=== PATIENT | female | born 1945 | race Caucasian/White ===

== ENCOUNTER 2020-07-12 09:43 | Outpatient (CLI) | payer MEDICARE, BC, SELFPAY ==
--- NOTE | 2020-07-12 09:48 | MM_ITS ---
WS: [id number] BILATERAL DIGITAL SCREENING MAMMOGRAPHY WITH CAD CLINICAL INFORMATION: SCREENING HISTORY: Screening mammogram. No current complaints. COMPARISON: July 07, 2019 TECHNIQUE: Bilateral CC and MLO views. FINDINGS: Scattered fibroglandular densities bilaterally. No suspicious focal mass, asymmetry, calcifications, or architectural distortion. No evidence of malignancy. Vascular calcification MM/[place] [id number] IMPRESSION: BI-RADS: 2-Benign FOLLOW UP: 1 Year Follow-up Recommend return to annual screening mammography.
--- NOTE | 2020-11-03 18:12 | XRR_ITS ---
PROCEDURE INFORMATION: Exam: XR Left Hand Exam date and time: 11/03/2020 6:23 PM Age: 75 years old Clinical indication: Hand; Left; Patient HX: 5th finger pain; Additional info: Pain lt. Hand TECHNIQUE: Imaging protocol: XR Left hand. Views: 3 or more views. Total images: 3 COMPARISON: No relevant prior studies available. FINDINGS: Bones/joints: Simple comminuted intra-articular fracture base of the proximal phalanx 5th digit left hand. Advanced primary osteoarthritis. Osteoporosis. Soft tissues: Soft tissue swelling surrounding the 5th metacarpal phalangeal joint.
== END 2020-07-12 09:44 | disposition home or self-care (01) ==
LOC: RADSHAW 09:47
PROVIDERS: PCP Nurse Practitioner; Visit Provider Nurse Practitioner
DX: Z12.31 Encounter for screening mammogram for malignant neoplasm of breast (principal)
CPT/HCPCS: 77067

== ENCOUNTER 2020-11-03 12:44 | Outpatient (CLI) | payer MEDICARE, BC, SELFPAY ==
--- NOTE | 2020-11-03 | XR_ITS ---
WS: PROCEDURE INFORMATION: Exam: XR Left Hand Exam date and time: 11/03/2020 6:23 PM Age: 75 years old Clinical indication: Hand; Left; Patient HX: 5th finger pain; Additional info: Pain lt. Hand TECHNIQUE: Imaging protocol: XR Left hand. Views: 3 or more views. Total images: 3 COMPARISON: No relevant prior studies available. FINDINGS: Bones/joints: Simple comminuted intra-articular fracture base of the proximal phalanx 5th digit left hand. Advanced primary osteoarthritis. Osteoporosis. Soft tissues: Soft tissue swelling surrounding the 5th metacarpal phalangeal joint. XR/XR hand LT min 3V* [id number] IMPRESSION: Simple comminuted intra-articular fracture base of the proximal phalanx 5th digit left hand.
== END 2020-11-03 12:45 | disposition home or self-care (01) ==
PROVIDERS: PCP Nurse Practitioner; Visit Provider Nurse Practitioner
DX: M25.542 Pain in joints of left hand (principal); S62.617A Displaced fracture of proximal phalanx of left little finger, initial encounter for closed fracture; X58.XXXA Exposure to other specified factors, initial encounter
CPT/HCPCS: 73130

== ENCOUNTER 2020-12-11 07:47 | Outpatient (CLI) | payer MEDICARE, BC, SELFPAY ==
--- NOTE | 2020-12-11 08:04 | XR_ITS ---
WS: [id number] HAND LEFT TECHNIQUE: 3 views of the left hand CLINICAL INFORMATION: DISPLACED FRACTURE OF MIDDLE PHLALANX OTHER FINGER, SUBSEQUE COMPARISON: November 03, 2020 FINDINGS: Osteopenia Again seen is the intra-articular fracture fifth digit proximal phalanx. Persistent fracture lines wi th incomplete healing. No significant displacement. No other changes from previous. XR/XR hand LT min 3V* [id number] IMPRESSION: Incomplete healing of the intra-articular fracture fifth digit proximal phalanx . No displacement.
== END 2020-12-11 07:48 | disposition home or self-care (01) ==
PROVIDERS: PCP Nurse Practitioner; Visit Provider Nurse Practitioner
DX: S62.628A Displaced fracture of middle phalanx of other finger, initial encounter for closed fracture (principal); X58.XXXA Exposure to other specified factors, initial encounter
CPT/HCPCS: 73130

== ENCOUNTER → 2020-12-19 13:59 | Outpatient (BNVA) | payer MEDICARE, BC, SELFPAY | PROVIDERS: PCP Nurse Practitioner; Visit Provider Orthopaedic Surgery | DX: S62.617D Displaced fracture of proximal phalanx of left little finger, subsequent encounter for fracture with routine healing (principal); W19.XXXD Unspecified fall, subsequent encounter | CPT/HCPCS: 73140 ==

== ENCOUNTER 2021-06-14 13:12 | Outpatient (CLI) | payer MEDICARE, BC, SELFPAY ==
--- NOTE | 2021-06-14 13:19 | XR_ITS ---
WS: [id number] Right knee, AP and lateral views, 06/14/2021 Clinical Data: PAIN IN R LEG Comparison: None. Findings: No fractures or dislocations are seen. There is medial joint compartment narrowing with small osteoph ytes of the medial lateral femoral condyles. The posterior right patella shows spurring and irregular ity. The soft tissues are unremarkable. XR/XR knee RT 1-2V [id number] Impression: Minimal osteoarthritis of all 3 joint compartments. Kellgren-Jomar Classification: grade 2 (minimal): definite osteophytes and p ossible joint space narrowing
== END 2021-06-14 13:13 | disposition home or self-care (01) ==
LOC: RAD 13:16
PROVIDERS: PCP Nurse Practitioner; Visit Provider Nurse Practitioner
DX: M17.11 Unilateral primary osteoarthritis, right knee (principal)
CPT/HCPCS: 73560

== ENCOUNTER 2022-10-14 13:57 | Outpatient (CLI) | payer MEDICARE, SELFPAY ==
--- NOTE | 2022-10-14 14:08 | MM_ITS ---
WS: [id number] BILATERAL 3D TOMOSYNTHESIS DIGITAL SCREENING MAMMOGRAPHY WITH CAD CLINICAL INFORMATION: SCREENING HISTORY: Screening mammogram. No current complaints. COMPARISON: 2020 TECHNIQUE: Bilateral CC and MLO views. FINDINGS: Scattered fibroglandular densities bilaterally. No suspicious focal mass, asymmetry, calcifications, or architectural distortion. No evidence of malignancy. Vascular calcification. MM/[place] [id number] IMPRESSION: BI-RADS: 2-Benign FOLLOW UP: 1 Year Follow-up Recommend return to annual screening mammography.
== END 2022-10-14 13:58 | disposition home or self-care (01) ==
LOC: RAD 14:03
PROVIDERS: PCP Nurse Practitioner; Visit Provider Nurse Practitioner Family
DX: Z12.31 Encounter for screening mammogram for malignant neoplasm of breast (principal)
CPT/HCPCS: 77063; 77067

== ENCOUNTER → 2022-11-28 10:47 | Outpatient (BNVA) | payer MEDICARE, SELFPAY | PROVIDERS: PCP Nurse Practitioner Family; Visit Provider Internal Medicine Cardiovascular Disease | DX: R55 Syncope and collapse (principal); I49.1 Atrial premature depolarization; I49.3 Ventricular premature depolarization; I47.1 Supraventricular tachycardia; I47.20 Ventricular tachycardia, unspecified | CPT/HCPCS: 93246 ==

== ENCOUNTER → 2023-03-18 09:53 | Outpatient (BNVA) | payer MEDICARE, SELFPAY | PROVIDERS: PCP Nurse Practitioner Family; Visit Provider Internal Medicine Cardiovascular Disease | DX: I47.1 Supraventricular tachycardia (principal); R06.09 Other forms of dyspnea; I47.29 Other ventricular tachycardia; R94.31 Abnormal electrocardiogram [ECG] [EKG]; M06.9 Rheumatoid arthritis, unspecified; Z01.810 Encounter for preprocedural cardiovascular examination | CPT/HCPCS: 93005; 99204 ==

== ENCOUNTER 2023-03-31 09:01 | Outpatient (CLI) | payer MEDICARE, SELFPAY ==
--- NOTE | 2023-03-31 09:30 | USCV_ITS ---
Irma Chaves Age: 77 Gender: F : 1945 Exam Date: 03/31/2023 09:22 Ordering Phys: Irina Lobo MD ([email or web address]) Technologist: Tomeka Field [place]am [place] [facility] [place] Indication: vtach, dyspnea BP: 140 / 80 HR: 64 Rhythm: Sinus Technical Quality: Good MEASUREMENTS (Male / Female) Normal Values 2D ECHO LV Diastolic Diameter PLAX 4.6 cm 4.2 - 5.9 / 3.9 - 5.3 cm LV Systolic Diameter PLAX 2.9 cm IVS Diastolic Thickness 1.3 cm 0.6 - 1.0 / 0.6 - 0.9 cm IVS Systolic Thickness 1.7 cm LVPW Diastolic Thickness 0.6 cm 0.6 - 1.0 / 0.6 - 0.9 cm LVPW Systolic Thickness 1.1 cm LVOT Diameter 2.1 cm LV Ejection Fraction 2D Teich 66.3 % LV Ejection Fraction MOD 2C 66.0 % LV Ejection Fraction 2C AL 68.1 % LA Diameter 2.9 cm LA Width 3.1 cm LA Height 3.8 cm RA Width 2.9 cm RA Height 3.3 cm Aorta at Sinotubular Diameter 2.9 cm IVC Diameter 1.5 cm M-MODE Aortic Annulus Diameter 2.7 cm LA Ao Ratio MM 1.2 MV E Point Septal Separation 0.6 cm DOPPLER AV Peak Velocity 151.7 cm/s LVOT Peak Velocity 85.0 cm/s AV Area Cont Eq vti 1.9 cm squared AV Area Cont Eq pk 2.0 cm squared MV Peak Velocity 123.0 cm/s MV Area PHT 4.1 cm squared Mitral E to A Ratio 0.8 MV E' Velocity 84.0 cm/s TR Peak Velocity 171.8 cm/s TR Peak Gradient 11.8 mmHg Right Atrial Pressure 5.0 mmHg Pulmonary Artery Systolic Pressu 16.8 mmHg PV Peak Velocity 59.0 cm/s RV Acceleration Time 0.1 s RV Ejection Time 0.3 s RV AcT/ET 0.3 FINDINGS Left Ventricle Normal left ventricular size, systolic function and wall thickness, with no regional wall motion abnormalities. Left ventricular ejection fraction is estimated at 70 %. Normal diastolic function. Right Ventricle Normal right ventricular size and systolic function. Right ventricular systolic pressure 16.8 mmHg. Right Atrium Normal right atrial size. Left Atrium Normal left atrial size. Mitral Valve Structurally normal mitral valve. No mitral valve stenosis. Mild mitral valve regurgitation. Aortic Valve Trileaflet aortic valve. No aortic valve stenosis. Mild-to- moderate aortic valve regurgitation. Tricuspid Valve Structurally normal tricuspid valve. No tricuspid valve stenosis. Trace to mild tricuspid valve regurgitation. Pulmonic Valve Pulmonic valve not well visualized. No pulmonary valve stenosis. No pulmonary valve regurgitation. Pericardium No pericardial effusion. Aorta Normal size aortic root. IVC Normal IVC dimension with >50% respiratory change of the inferior vena cava. CONCLUSIONS 1. Normal left ventricular size, systolic function and wall thickness, with no regional wall motion abnormalities. Left ventricular ejection fraction is estimated at 70 %. Normal diastolic function. 2. Dbix-bc-wvkhztob aortic valve regurgitation. 3. Mild mitral valve regurgitation. 4. No prior similar studies to compare. Irina Lobo MD (Electronically Signed) Final Date: 12 April 2023 22:51 S
== END 2023-03-31 09:02 | disposition home or self-care (01) ==
LOC: RAD 09:02
PROVIDERS: PCP Nurse Practitioner Family; Visit Provider Internal Medicine Cardiovascular Disease
DX: I47.29 Other ventricular tachycardia (principal); R06.09 Other forms of dyspnea; I08.0 Rheumatic disorders of both mitral and aortic valves
CPT/HCPCS: 93306

== ENCOUNTER 2023-04-03 10:28 | Outpatient (CLI) | payer MEDICARE, SELFPAY ==
[2023-04-03 10:53] VITALS: BMI 29.4
--- NOTE | 2023-04-03 11:13 | NMCV_ITS ---
NM marija perf SPECT r/s* [id number] Irma Chaves Age: 77 Gender: F : 1945 Exam Date: 04/03/2023 11:55 Ordering Phys: Irina Lobo MD ([email or web address]) Technologist: HIWOT Lacey Exam Location: [facility] Indications: EXERTIONAL SHORTNESS OF BREATH, ISCHEMIC HEART DISEASE STRESS TEST [facility] IMAGE PROTOCOL Rest/Stress 1 Lexiscan Day Radiopharmaceutical Dose (mCi) Administration Site Administered by Rest: Tc-99m 10.5 IV HIWOT Lacey Sestamibi Stress:Tc-99m 32.9 IV HIWOT Lacey Sestamibi Rest: 03-Apr-2023 60 Discovery 630 Stress: 03-Apr-2023 30 Discovery 630 0.4mg Lexiscan. Images obtained in supine and prone position. SPECT RESULTS Technical Quality: Excellent Raw Data Analysis: Normal Image Corrections: No attenuation or motion correction applied Summed Stress Score: 15 Summed Rest Score: 10 Summed Difference Score: 5 PERFUSION FINDINGS Medium sized perfusion abnormality of moderate to severe severity of basal to mid inferior and basal to mid inferolateral schultz with some reversibility in basal inferior, basal inferolateral, apical inferior and apical lateral schultz. FUNCTIONAL RESULTS (calculated via Gated SPECT) Stress Image LV EF (%): 71 Stress EDV (mL):76 TID: 1.22 Stress ESV (mL):22 FUNCTIONAL FINDINGS: The left ventricle is normal in size. Transient Ischemia Dilatation of 1.2. The left ventricular ejection fraction is normal with a value of 71%. There is normal left ventricular systolic function. There is normal left ventricular wall thickening. IMPRESSIONS 1. Medium sized partially reversible perfusion abnormality of moderate to severe severity of basal to apical inferior and basal to mid inferolateral and apical lateral schultz. 2. 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 3. Overall left ventricular systolic function is normal without regional wall motion abnormalities, LVEF=71%. 4. EKG portion of the study will be reported separately. Irina Lobo MD (Electronically Signed) Final Date: 09 April 2023 23:21 S
--- NOTE | 2023-04-03 11:13 | ECG_ITS ---
[facility] Test Date: 2023-04-03 Pat Name: Irma Chaves Department: Room: Gender: Female Senior Systems Analyst: : 1945 Requested By: Irina Lobo Order Number: [id number] Aaron MD: Irina Lobo M.D. Interpretive Statements NAME OF STUDY: LEXISCAN SESTAMIBI STRESS TEST INDICATION: Dyspnea on Exertion PROCEDURE: At the baseline, the blood pressure was 139/69 mm Hg with a heart rate of 63 bpm. The electrocardiogram showed sinus rhythm, normal axis. Possible old inferior KS. Non specific ST- T wave changes in V3-V6. ??? The Lexiscan was infused over a period of 20 seconds. A total of 0.4 milligrams of Lexiscan was infused. The stress phase was continued for a total of 5 minutes. Heart rate at the end of the stress phase was 99 bpm with a blood pressure of 135/71 mm Hg. The EKG at the peak infusion revealed sinus rhythm with no significant ST-T wave changes. ??? Sestamibi was injected 20 seconds after the Lexiscan infusion. ??? Blood pressure at the end of the recovery phase was 143/70 mm Hg with a heart rate of 91 beats per minute. ??? CONCLUSION: 1. No significant EKG changes with the LexiScan infusion. 2. No LexiScan induced chest pain or cardiac arrhythmia. 3. Normal blood pressure and heart rate response. 4. Sestamibi/sestamibi perfusion scan pending; see separate report. Electronically Signed On 04-09-2023 22:27:54 CDT by Irina Lobo M.D. [email or web address]
[2023-04-03] MEDS: regadenoson 0.4 Mg/5 ml Syringe IVP (12:42)
[2023-04-03 12:55] VITALS: BP 137/83; PULSE 91
== END 2023-04-03 10:29 | disposition home or self-care (01) ==
PROVIDERS: PCP Nurse Practitioner Family; Visit Provider Internal Medicine Cardiovascular Disease
DX: R06.09 Other forms of dyspnea (principal); Z82.49 Family history of ischemic heart disease and other diseases of the circulatory system
CPT/HCPCS: 36415; 78452; 93017; 96374; A9500; J2785

== ENCOUNTER → 2023-05-22 09:33 | Outpatient (BNVA) | payer MEDICARE, SELFPAY | PROVIDERS: PCP Nurse Practitioner Family; Visit Provider Nurse Practitioner Family | DX: L57.0 Actinic keratosis (principal); B35.1 Tinea unguium; L26 Exfoliative dermatitis; D22.5 Melanocytic nevi of trunk; L57.8 Other skin changes due to chronic exposure to nonionizing radiation | CPT/HCPCS: 17000; 99214 ==

== ENCOUNTER → 2023-09-08 12:46 | Outpatient (BNVA) | payer MEDICARE, SELFPAY | PROVIDERS: PCP Nurse Practitioner Family; Visit Provider Internal Medicine Cardiovascular Disease | DX: I47.29 Other ventricular tachycardia (principal) | CPT/HCPCS: 99213 ==

== ENCOUNTER 2023-10-29 10:22 | Outpatient (CLI) | payer MEDICARE, SELFPAY ==
--- NOTE | 2023-10-29 10:38 | MM_ITS ---
WS: [id number] VIEWS: MLO and CC views both breasts. 3D digital tomosynthesis is also included in this exam. Comparison made with prior exam of 02/15/2014. 02/16/2015. 03/15/2016. 03/11/2017. 03/24/2018. 07/07/2019. 1 09/12/2019. 10/14/2022.. Findings: There was no sign of mass, architectural distortion or suspicious calcification in either breast. The re are scattered areas of fibroglandular density Impression: MM/[place] [id number] BI-RADS: 1-Negative FOLLOW-UP: 1 Year Follow-up This mammogram was also analyzed by the Computer Aided Detection System R2 Imag e [employer].
== END 2023-10-29 10:23 | disposition home or self-care (01) ==
LOC: RAD 10:23
PROVIDERS: PCP Nurse Practitioner Family; Visit Provider Nurse Practitioner Family
DX: Z12.31 Encounter for screening mammogram for malignant neoplasm of breast (principal)
CPT/HCPCS: 77063; 77067

== ENCOUNTER → 2024-06-01 11:14 | Outpatient (BNVA) | payer MEDICARE, SELFPAY | PROVIDERS: PCP Nurse Practitioner Family; Visit Provider Podiatrist Foot & Ankle Surgery | DX: L60.3 Nail dystrophy (principal); M20.40 Other hammer toe(s) (acquired), unspecified foot | CPT/HCPCS: 99203 ==

== ENCOUNTER → 2024-06-29 11:14 | Outpatient (BNVA) | payer MEDICARE, SELFPAY | PROVIDERS: PCP Nurse Practitioner Family; Visit Provider Podiatrist Foot & Ankle Surgery | DX: L60.3 Nail dystrophy (principal); M20.41 Other hammer toe(s) (acquired), right foot; M20.42 Other hammer toe(s) (acquired), left foot | CPT/HCPCS: 99213 ==

== ENCOUNTER → 2024-09-08 13:03 | Outpatient (BNVA) | payer MEDICARE, SELFPAY | PROVIDERS: PCP Nurse Practitioner Family; Visit Provider Internal Medicine Cardiovascular Disease | DX: I47.29 Other ventricular tachycardia (principal); I10 Essential (primary) hypertension; Z98.890 Other specified postprocedural states | CPT/HCPCS: 99214 ==